=== PATIENT | female | born 1965 | race Caucasian/White ===

== ENCOUNTER → 2023-06-11 10:33 | Outpatient (REF) | payer BC, SELFPAY ==
[2023-06-11 12:10] LABS: ALT (SGPT) 13 U/L (0-35); AST (SGOT) 25 U/L (14-36); Albumin 4.5 g/dl (3.5-5.0); Alkaline Phosphatase 57 U/L (38-126); Blood Urea Nitrogen 15 mg/dl (7-17); Calcium 9.8 mg/dl (8.4-10.2); Carbon Dioxide 28 mmol/L (22-30); Chloride 105 mmol/L (98-107); Glucose 94 mg/dl (70-99); HDL Cholesterol 81 mg/dl; LDL Cholesterol, Calculated 102 mg/dl; Potassium 4.2 mmol/L (3.5-5.1); Sodium 137 mmol/L (135-145); Total Bilirubin 0.6 mg/dl (0.2-1.3); Total Cholesterol 196 mg/dl (50-199); Total Protein 7.1 g/dl (6.3-8.2); Triglyceride 69 mg/dl (10-149); Very Low Density Lipoprotein 13 mg/dl (0-30); eGFR > 60.00
[2023-06-14 16:55] LABS: Lyme Antibody Screen, EIA Negative (Negative)
== END ==
LOC: REG 10:33
PROVIDERS: ATTENDING PHYSICIAN Family Medicine
DX: Z00.00 Encounter for general adult medical examination without abnormal findings (principal); E78.00 Pure hypercholesterolemia, unspecified; Z12.4 Encounter for screening for malignant neoplasm of cervix; S10.86XD Insect bite of other specified part of neck, subsequent encounter; W57.XXXD Bitten or stung by nonvenomous insect and other nonvenomous arthropods, subsequent encounter
CPT/HCPCS: 36415; 80053; 80061; 86618

== ENCOUNTER → 2024-01-03 16:36 | Outpatient (REF) | payer BC, SELFPAY | LOC: WDC 16:36 | PROVIDERS: ATTENDING PHYSICIAN Nurse Practitioner Family; FAMILY PHYSICIAN Family Medicine | DX: Z12.31 Encounter for screening mammogram for malignant neoplasm of breast (principal) | CPT/HCPCS: 77063; 77067 ==

== ENCOUNTER → 2024-05-31 17:03 | Outpatient (REF) | payer BC, SELFPAY ==
[2024-05-31 17:35] LABS: ALT (SGPT) 19 U/L (0-35); AST (SGOT) 25 U/L (14-36); Albumin 4.4 g/dl (3.5-5.0); Alkaline Phosphatase 56 U/L (38-126); Blood Urea Nitrogen 11 mg/dl (7-17); Carbon Dioxide 30 mmol/L (22-30); Glucose 93 mg/dl (70-99); HDL Cholesterol 93 mg/dl; LDL Cholesterol, Calculated 132 mg/dl; Total Bilirubin 0.7 mg/dl (0.2-1.3); Total Cholesterol 233 mg/dl (50-199); Triglyceride 42 mg/dl (10-149); Very Low Density Lipoprotein 8 mg/dl (0-30); eGFR > 60.00
[2024-05-31 17:49] LABS: Calcium 9.7 mg/dl (8.4-10.2); Chloride 102 mmol/L (98-107); Potassium 3.9 mmol/L (3.5-5.1); Sodium 138 mmol/L (135-145)
== END ==
LOC: REG 17:03
PROVIDERS: ATTENDING PHYSICIAN Family Medicine
DX: E78.2 Mixed hyperlipidemia (principal); Z00.00 Encounter for general adult medical examination without abnormal findings; E78.00 Pure hypercholesterolemia, unspecified
CPT/HCPCS: 36415; 80053; 80061